=== PATIENT | female | born 1975 | race Hispanic/Latino ===

== ENCOUNTER 2022-08-14 10:03 | Outpatient (CLI) | payer SELFPAY ==
[~2022-08-14 10:03] MED LIST: Magnevist 469MG/ML 20 ML VIAL ONE
[2022-08-14] MEDS ORDERED: Midazolam HCl 2 mg/2 ml Vial ONE (10:19)
== END 2022-08-14 10:04 | disposition home or self-care (01) ==
LOC: CSHMRI 10:03
PROVIDERS: ATTEND Physician Assistant Surgical
DX: M25.422 Effusion, left elbow (principal); M00.9 Pyogenic arthritis, unspecified; M70.22 Olecranon bursitis, left elbow; M79.89 Other specified soft tissue disorders; G56.22 Lesion of ulnar nerve, left upper limb
CPT/HCPCS: J2250